=== PATIENT | female | born 1995 ===

== ENCOUNTER 2018-04-03 14:48 | Emergency (ER) | payer OTHER ==
--- NOTE | 2018-04-03 14:49 | UC ---
Cardiac HPI - HPI Summary HPI Summary: 22 yo female presents with chest pain, pain on inspiration, and epigastric pain for the last hour. She is accompanied by her grandmother. Pt tells me that she was on her way to work when she developed severe chest pain and felt short of breath. This rapidly progressed to include epigastric pain, nausea, and vomiting x3. Her grandmother put me on the phone with pt's mother who informs me that pt is a previous heroin abuser and is currently on suboxone. Pt admits to me that she is on zoloft and suboxone, but did not take them today. She says she did not use any illegal drugs today. Denies fever, chills, diarrhea, headache, or dizziness. - History of Current Complaint Stated Complaint: CHEST PAIN TROUBLE BREATHING Hx Obtained From: Patient Onset/Duration: Sudden Onset Initial Severity: Severe Current Severity: Severe Pain Intensity: 10 - Allergy/Home Medications Allergies/Adverse Reactions: Allergies Allergy/AdvReac Type Severity Reaction Status Date / Time No Known Allergies Allergy Verified 04/03/18 15:11 Home Medications: Home Medications Buprenorphine HCl/Naloxone HCl [Suboxone 8 mg-2 mg Sl Film] 04/03/18 [History Confirmed 04/03/18] Sertraline* [Zoloft*] 04/03/18 [History] PMH/Surg Hx/FS Hx/Imm Hx Psychological History: Anxiety, Depression - Surgical History Surgical History: None - Family History Known Family History: Positive: None - Social History Occupation: Employed Full-time Lives: With Family Alcohol Use: Occasionally Substance Use Type: Heroin - previous Smoking Status (MU): Light Every Day Tobacco Smoker Review of Systems Constitutional: Negative Skin: Negative Eyes: Negative ENT: Negative Respiratory: Shortness Of Breath Cardiovascular: Chest Pain Gastrointestinal: Abdominal Pain, Vomiting, Nausea Genitourinary: Negative Neurovascular: Negative Neurological: Negative Psychological: Negative All Other Systems Reviewed And Are Negative: Yes Physical Exam - Summary Physical Exam Summary: GENERAL: Lying on stretcher in position. Mild pain discomfort. SKIN: No rashes, sores, lesions, or open wounds. NECK: Supple. Nontender. No lymphadenopathy. CHEST: CTAB. No r/r/w. No accessory muscle use. Breathing comfortably and in no distress. CV: RRR. Without m/r/g. Pulses intact. Brisk cap refill. ABDOMEN: Severe TTP epigastric region. Guarding epigastric. No distention. No organomegaly. No CVA tenderness. Bowel sounds present NEURO: Alert. CN II-XII grossly intact. PSYCH: Age appropriate behavior. Triage Information Reviewed: Yes Vital Signs: Vital Signs: Temp Pulse Resp BP Pulse Ox 99.4 F 70 18 112/70 98 04/03/18 15:03 04/03/18 15:03 04/03/18 15:03 04/03/18 15:03 04/03/18 15:03 Vital Signs Reviewed: Yes - Assessment/Plan Course Of Treatment: EKG reveals sinus arrhythmia at 68bpm. No ST changes as read by Dr. Douglas. Given pt's severe abdominal pain, dyspnea, chest pain, and need for advanced imaging/labwork - I have advised to pt to be further evaluated in the ED. She was agreeable to this plan and [place] [facility] [place] left in stable condition. Report called to Parmjit GUZMAN in ED. - Clinical Impression Provider Diagnoses: Severe epigastric pain. Dyspnea. Chest pain Discharge - Sign-Out/Discharge Documenting (check all that apply): Patient Departure - Discharge Plan Condition: Stable Disposition: TRANS HIGHER LVL OF CARE FAC Referrals: No Primary Care Phys,NOPCP [Primary Care Provider] - - Billing Disposition and Condition Condition: STABLE Disposition: Trans Higher Lvl of Care Fac
[2018-04-03 15:12] VITALS: BP 112/70
== END 2018-04-03 15:25 | disposition short-term general hospital (02) ==
LOC: EDBD → UCEAST 14:48
DX: R10.13 Epigastric pain (principal); R06.00 Dyspnea, unspecified; R07.89 Other chest pain; I49.9 Cardiac arrhythmia, unspecified
CPT/HCPCS: 93005; 99203; G0463

== ENCOUNTER 2018-04-03 15:45 | Emergency (ER) | payer SELFPAY ==
[2018-04-03] MEDS ORDERED: Ondansetron INJ* 2 MG/ML VIAL IV ONE (16:01)
--- NOTE | 2018-04-03 16:35 | ED ---
HPI Chest Pain - HPI Summary HPI Summary: This is scribe Wale Nolan documenting for attending Shaka Leung MD. A 22 y/o female KEVIN presents to ED c/o chest pain reaching 10/10 in severity. As per triage, "pt here from with c/o chest pain started today". Additionally c/o vomiting and nausea. In the ED room, the patient has a pulse of 64 BPM, O2 saturation of 99% and blood pressure of 140/--. According to the patient, she has been experiencing nausea, vomiting and chest pain fro the past hour or so. The pain started after the vomiting. Moving/position change aggravates the symptoms. t was noted that the patient seems agitated. Patient has no other known medical issues. Patient is currently on Suboxone. As per family, the patient was going to head off to work when she stated that she felt like she was going to loose consciousness in the parking long. Initially they went to , but were referred to ED. Family noted that she hasn't been taking her medication recently, but when the patient does she does take 12 mg twice a day, however, the patient denied their statements and said she takes 12 mg per day. In the ED room, the patient is agitated. As per grandmother, patient suffers from depression because she had a miscarriage 2-years ago. Patient is on a anti-depressant. Pt is a recovering heroin addict. I, Dr. Shaka Leung, personally performed the services described in this documentation as scribed in my presence and it is both accurate and complete. - History of Current Complaint Chief Complaint: EDChestPainROMI Time Seen by Provider: 04/03/18 15:49 Hx Obtained From: Patient Onset/Duration: Started Hours Ago, Still Present Timing: Constant Initial Severity: Severe Current Severity: Severe Pain Intensity: 10 Pain Scale Used: 0-10 Numeric Chest Pain Location: Diffuse Chest Pain Radiates: No Aggravating Factor(s): Position, Movement Alleviating Factor(s): Nothing Associated Signs and Symptoms: Positive: Chest Pain, Vomiting - Allergy/Home Medications Allergies/Adverse Reactions: Allergies Allergy/AdvReac Type Severity Reaction Status Date / Time No Known Allergies Allergy Verified 04/03/18 15:11 PMH/Surg Hx/FS Hx/Imm Hx Endocrine/Hematology History: Denies: Hx Diabetes Cardiovascular History: Denies: Hx Hypertension Psychiatric History: Reports: Hx Depression - Surgical History Surgery Procedure, Year, and Place: c section Infectious Disease History: No Infectious Disease History: Denies: Traveled Outside the [place] in Last 30 Days - Family History Known Family History: Positive: Hypertension, Diabetes - Social History Alcohol Use: Occasionally Substance Use Type: Reports: Heroin - Recovering heroin addict. Substance Use Comment - Amount & Last Used: heroin Smoking Status (MU): Heavy Every Day Tobacco Smoker Review of Systems Negative: Fever Positive: Chest Pain Positive: Vomiting All Other Systems Reviewed And Are Negative: Yes Physical Exam - Summary Physical Exam Summary: Appearance: The patient is well-nourished in no acute distress and in no acute pain. Patient is agitated. Skin: The skin is warm and dry and skin color reflects adequate perfusion. HEENT: The head is normocephalic and atraumatic. The pupils are equal and reactive. The conjunctivae are clear and without drainage. Nares are patent and without drainage. Mouth reveals moist mucous membranes and the throat is without erythema and exudate. The external ears are intact. The ear canals are patent and without drainage. The tympanic membranes are intact. Neck: The neck is supple with full range of motion and non-tender. There are no carotid bruits. There is no neck vein distension. Respiratory: Chest is non-tender. Lungs are clear to auscultation and breath sounds are symmetrical and equal. Cardiovascular: Heart is regular rate and rhythm. There is no murmur or rub auscultated. There is no peripheral edema and pulses are symmetrical and equal. Abdomen: Epigastric tenderness. There are normal bowel sounds heard in all four quadrants and there is no organomegaly palpated. Musculoskeletal: There is no back tenderness noted. Extremities are non-tender with full range of motion. There is good capillary refill. There is no peripheral edema or calf tenderness elicited. Neurological: Patient is alert and oriented to person, place and time. The patient has symmetrical motor strength in all four extremities. Cranial nerves are grossly intact. Deep tendon reflexes are symmetrical and equal in all four extremities. Psychiatric: The patient has an appropriate affect and does not exhibit any anxiety or depression. Triage Information Reviewed: Yes Vital Signs On Initial Exam: Initial Vitals Temp Pulse Resp BP Pulse Ox 98.7 F 66 16 137/90 99 04/03/18 16:11 04/03/18 16:11 04/03/18 16:11 04/03/18 16:11 04/03/18 16:11 Vital Signs Reviewed: Yes Diagnostics - Vital Signs Vital Signs Temp Pulse Resp BP Pulse Ox 04/03/18 16:11 98.7 F 66 16 137/90 99 - Laboratory Result Diagrams: 04/03/18 16:52 04/03/18 16:52 Lab Statement: Any lab studies that have been ordered have been reviewed, and results considered in the medical decision making process. - EKG 1716 Cardiac Rate: Bradycardia - 54 BPM EKG Rhythm: Sinus Bradycardia Re-Evaluation - Re-Evaluation Second Eval Re-Evaluation Time: 20:03 Change: Improved Comment: Discussed results and discharge. First Eval Re-Evaluation Time: 19:18 Change: Improved Comment: Patient is feeling better. Patient would like to try something to eat. Chest Pain Course/Dx - Course Course Of Treatment: Ms. Lezama presented complaining of the fairly sudden onset of chest pain and vomiting a few hours ago. She normally takes 16 mg of Suboxone daily and has not taken it for a couple of days. She was treated symptomatically with fluids and antiemetics as well as replacing her Suboxone. She improved and was able to keep by mouth down and her lab workup was negative. I suspect her symptoms may be related to withdrawal symptoms and that she is safe to be discharged. - Diagnoses Provider Diagnoses: Vomiting, Chest pain Discharge - Sign-Out/Discharge Documenting (check all that apply): Patient Departure - DISCHARGE - Discharge Plan Condition: Stable Disposition: HOME Patient Education Materials: Chest Pain (ED), Acute Nausea and Vomiting (ED) Referrals: [facility] [Outside] - 3 Days Additional Instructions: FOLLOW UP WITH PRIMARY CARE IN 2-3 DAYS. RETURN TO ED FOR ANY NEW OR WORSENING SYMPTOMS. - Billing Disposition and Condition Condition: STABLE Disposition: Home
[2018-04-03] MEDS ORDERED: Buprenorphine/Naloxone 8-2 MG SL TAB* 1 TAB PO SCH (17:00)
[2018-04-03 17:03] LABS: ABS Basophils 0 10^3/ul (0-0.2); ABS Eosinophils 0 10^3/ul (0-0.6); ABS Lymphocytes 1.7 10^3/ul (1.0-4.8); ABS Monocytes 0.5 10^3/ul (0-0.8); ABS Neutrophils 6.9 10^3/ul (1.5-7.7); ABS Nucleated RBC 0 10^3/ul; Eosinophil % 0.2 % (0-6); Hematocrit 40 % (35-47); Hemoglobin 13.4 g/dl (12.0-16.0); Lymphocyte % 18.1 % (25-47); Mean Corpuscular HGB Conc 34 g/dl (31-36); Mean Corpuscular Hemoglobin 29 pg (27-31); Mean Corpuscular Volume 87 fL (80-97); Mean Platelet Volume 8.3 um3 (7.4-10.4); Nucleated Red Blood Cells % 0; Platelet Count 356 10^3/ul (150-450); Red Blood Count 4.56 10^6/ul (4.00-5.40); Red Cell Distribution Width 14 % (10.5-15); White Blood Count 9.1 10^3/ul (3.5-10.8)
[2018-04-03] MEDS ORDERED: PROCHLORPERAZINE INJ 5 MG/ML 2 ML VIAL IV PRN (17:23)
[2018-04-03 17:27] LABS: EGFR Non-African American 67.8 (>60)
[2018-04-03] MEDS ORDERED: KCL 10 MEQ/50 ML IVPREMIX* 10 MEQ/50 ML BAG IV ONE (18:19)
[2018-04-03] MEDS ORDERED: NS 0.9% 1000 ML* 1,000 ML IV ONE (18:19)
[2018-04-03] MEDS ORDERED: Sucralfate TAB* 1 GM PO ONE (18:57)
[2018-04-03 20:22] VITALS: BP 127/79
== END 2018-04-03 20:38 | disposition home or self-care (01) ==
LOC: EDBD → ED 15:45
DX: R07.9 Chest pain, unspecified (principal); R11.10 Vomiting, unspecified; R00.1 Bradycardia, unspecified; F32.9 Major depressive disorder, single episode, unspecified; F17.200 Nicotine dependence, unspecified, uncomplicated; Z79.899 Other long term (current) drug therapy
CPT/HCPCS: 36415; 80053; 80307; 84702; 85025; 86140; 93005; 96361; 96374; 96375; 99283; A9270-GY; J0780; J2405; J3480